=== PATIENT | female | born 1980 | race African-American/Black ===

== ENCOUNTER 2019-12-29 07:44 | Emergency (ER) | payer SELFPAY ==
[2019-12-29 07:49] VITALS: BP 124/85; PULSE 110; RESP 18; TEMP 37; O2SAT 99; BMI 32.2
[2019-12-29 08:11] LABS: Glucose Urine UA NEG (NEG); Leukocyte Esterase Urine 2+ (NEG); Nitrite Urine NEG (NEG); PH 5.5 (5.0-8.0); Specific Gravity - Urine >= 1.030 (1.005-1.025); UACC Culture Trigger YES; Urine Blood 1+ (NEG); Urine Ketones >=80 MG/DL (NEG); Urine Protein NEG (NEG-TRACE)
--- NOTE | 2019-12-29 08:11 | ED_ITS ---
HPI - Female Genitourinary General Chief complaint: Urogenital-Female Stated complaint: back pain, difficulty urinating Time Seen by Provider: 12/29/19 08:07 Source: patient Mode of arrival: ambulatory Limitations: no limitations History of Present Illness HPI Narrative: patient comes to emergency room complaining of difficulty urinating and frequency. Patient states she does not have any burning. Patient states the last time she had normal urinary stream was approximately 2-3 days ago. Patient denies any fever, patient completed of right-sided back pain, which starts resolved. Patient denies any trauma. Related Data Previous Rx's Medication Instructions Recorded levofloxacin 500 mg PO DAILY #6 tab 12/29/19 phenazopyridine 200 mg PO TID PRN #6 tab 12/29/19 Allergies Allergy/AdvReac Type Severity Reaction Status Date / Time No Known Allergies Allergy Unverified 11/17/19 17:09 Review of Systems Review of Systems: Constitutional : No Weight loss, No Fever, No Chills, No Night Sweats, No Fatigue, No Malaise ENT/Mouth : No Hearing loss, No Ear Pain, No Nasal Congestion, No Sinus Pain, No Hoarseness, No sore throat, No Rhinorrhea, No Swallowing Difficulty Eyes: No Eye Pain, No Swelling, No Redness, No Foreign Body, No Discharge, No Vision Changes Cardiovascular : No Chest Pain, No SOB, No Dyspnea on Exertion, No Orthopnea, No Edema, No Palpitations Respiratory : No Cough, No Sputum, No Wheezing, No Smoke Exposure, No Dyspnea Gastrointestinal : No Nausea, No Vomiting, No Diarrhea, No Constipation, No abdominal Pain, No Hematochezia, No Melena Genitourinary : no irregular bleeding, No Dysuria, Denies hematuria, complaining of urinary frequency, no incontinence. decreased amount of urine Musculoskeletal : No joint pain, No Myalgias, No Joint Swelling Skin : No Skin Lesions, No rash Neuro : No Weakness, No Numbness, No Paresthesias, No Loss of Consciousness, No Dizziness, No Headache Psych : No Anxiety/Panic, No Depression, No SI/HI/AH/VH, No Social Issues, Heme/Lymph: No Bruising, No Bleeding,No Lymphadenopathy Endocrine : No Polyuria, No Polydipsia, No Temperature Intolerance PMFSH Past Medical History Medical History Anemia Social History Social History Alcohol intake: current Alcohol intake frequency: holidays/special occasions only Smoking Status: Never smoker Use of substances other than those prescribed or required for medical reasons: No Advance Directives: No Advance Directives Information Provided: No Physical Exam Vital Signs: Vital Signs: Vital Signs Temp Pulse Resp BP Pulse Ox 12/29/19 07:49 98.6 F 110 H 18 124/85 99 Body Mass Index 32.2 Appearance: Alert. Oriented X3. No acute distress. Eyes: Pupils equal, round and reactive to light. ENT: Pharynx normal. Neck: Normal inspection. Neck supple. No lymph nodes noted. No crepitus CVS: Normal heart rate and rhythm. Pulses normal. Normal S1 and S2 Respiratory: No respiratory distress. Breath sounds normal. No Wheezing. No rales Abdomen: Soft and nontender. No rigidity. No distention. good BS x4 Back: no CVA tenderness, no back pain Skin: Skin warm and dry. Normal skin color. Normal skin turgor. Extremities: No lower extremity edema. No lower extremity edema. No Lacerations. No Rash Neuro: Oriented X 3. No motor deficit. No sensory deficit. Moving all extermities. No slurred speech. Course Course Course Narrative: I discussed with the patient that she has a UTI, given that she has a UTI back pain, clinically she has pyelonephritis. at this time sepsis is not suspected. Patient will be sent home with a prescription for UTI treatment. Patient requesting not to get Bactrim, states she had an adverse effect 10 years ago I discussed with the patient if she develops any urinary retention, worsening abdominal pain, fever, flank pain, new symptoms, to return to emergency room MDM - Female Genitourinary Lab Data Result diagrams: 12/29/19 08:40 12/29/19 08:40 Labs: Lab Results 12/29/19 12/29/19 12/29/19 Range/Units 08:03 08:40 08:40 WBC 7.5 (4.8-10.8) X10*3/uL RBC 4.07 L (4.20-5.50) X10*6/uL Hgb 10.0 L (12.0-16.0) g/dl Hct 32.2 L (37-47) % MCV 79.1 L (80-98) fL MCH 24.6 L (27.0-33.0) pg MCHC 31.1 (31.0-35.0) g/dl RDW 18.6 H (11.0-16.0) % Plt Count 306 (160-400) X10*3/uL MPV 11.0 (9.4-12.3) fL Immature Gran % (Auto) 0.4 (0.0-0.4) % Neut % (Auto) 67.4 (45-73) % Lymph % (Auto) 21.7 (20-40) % [place] % (Auto) 8.8 (2-11) % Eos % (Auto) 0.8 (0-4) % Baso % (Auto) 0.9 (0-2) % Lymph # (Auto) 1.6 (1.2-4.9) X10*3/uL [place] # (Auto) 0.7 (0.1-1.2) X10*3/uL Eos # (Auto) 0.1 (0.0-0.4) X10*3/uL Baso # (Auto) 0.1 (0.0-0.2) X10*3/uL Abs Immat Gran (auto) 0.03 (0.00-0.03) X10*3/uL Absolute Neuts (auto) 5.0 (2.0-8.3) X10*3/uL Absolute Nucleated RBC 0.000 (0.0-0.012) X10*3/uL Nucleated RBC % (auto) 0.0 (0.0-0.2) /100WBC Sodium 137 (135-145) mmol/L Potassium 4.3 (3.3-5.1) mmol/l Chloride 106 (96-108) mmol/L Carbon Dioxide 21 L (22-29) mmol/L Anion Gap 14 (12-20) BUN 8 L (9-16) mg/dL Creatinine 0.75 (0.5-1.4) mg/dL Estim Creat Clear Calc 118.2 Estimated GFR > 60 Random Glucose 80 (60-115) mg/dL Calcium 8.6 (8.4-10.2) mg/dL Urine Color YELLOW Urine Appearance CLOUDY Urine pH 5.5 (5.0-8.0) Ur Specific [place] >= 1.030 H (1.005-1.025) Urine Protein NEG (NEG-TRACE) MG/DL Urine Glucose (UA) NEG (NEG) MG/DL Urine Ketones >=80 (NEG) MG/DL Urine Blood 1+ H (NEG) Urine Nitrite NEG (NEG) Ur Leukocyte Esterase 2+ H (NEG) Urine RBC 1-4 (0) /HPF Urine WBC 5-9 H (0-4) /HPF Ur Squamous Epith Cells 3+ /LPF Urine Bacteria 1+ /LPF Urine Test NEGATIVE (NEGATIVE) Discharge Plan Discharge Clinical Impression: Urinary tract infection Qualifiers: Urinary tract infection type: acute pyelonephritis Qualified Code(s): N10 - Acute pyelonephritis Patient Disposition: Home, Self-Care Instructions: Urinary Tract Infection in Women (ED) Additional Instructions: if you have urinary retention, worsening abdominal pain, fever, flank pain, new symptoms, please return to the emergency room or call 911 Prescriptions: New levofloxacin 500 mg tablet 500 mg PO DAILY Qty: 6 RF: 0 phenazopyridine 100 mg tablet 200 mg PO TID PRN (Reason: pain) Qty: 6 RF: 0
[2019-12-29 08:13] LABS: Appearance Urine CLOUDY; Color Urine YELLOW
[2019-12-29 08:28] LABS: Bacteria Urine 1+ /LPF; Squamous Epithelial Cell Urine 3+ /LPF; UACC CULT YES
[2019-12-29 08:44] LABS: MANUAL DIFF FLAG NO
[2019-12-29 08:46] LABS: Basophils Absolute Auto 0.1 X10*3/uL (0.0-0.2); Basophils Percent Auto 0.9 % (0-2); Eosinophils Absolute Auto 0.1 X10*3/uL (0.0-0.4); Eosinophils Percent Auto 0.8 % (0-4); Hematocrit 32.2 % (37-47); Imm Gran Abs Auto 0.03 X10*3/uL (0.00-0.03); Imm Gran Pct Auto 0.4 % (0.0-0.4); Lymphocytes Absolute Auto 1.6 X10*3/uL (1.2-4.9); Lymphocytes Percent Auto 21.7 % (20-40); Mean Corpuscular HGB Conc 31.1 g/dl (31.0-35.0); Mean Corpuscular Hemoglobin 24.6 pg (27.0-33.0); Mean Corpuscular Volume 79.1 fL (80-98); Monocytes Absolute Auto 0.7 X10*3/uL (0.1-1.2); Monocytes Percent Auto 8.8 % (2-11); Neutrophils Percent Auto 67.4 % (45-73); Platelet Count 306 X10*3/uL (160-400); Red Blood Count 4.07 X10*6/uL (4.20-5.50); Red Cell Distribution Width 18.6 % (11.0-16.0); White Blood Count 7.5 X10*3/uL (4.8-10.8)
[2019-12-29 08:49] LABS: UPreg QC Valid YES; Urine Pregnancy NEGATIVE (NEGATIVE)
[2019-12-29 09:07] LABS: Anion Gap 14 (12-20); Blood Urea Nitrogen 8 mg/dL (9-16); Calcium 8.6 mg/dL (8.4-10.2); Carbon Dioxide 21 mmol/L (22-29); Chloride 106 mmol/L (96-108); Creatinine Clr Calc Pharmacy 118.2; Estimated Glomerular Filt Rate > 60; Glucose Random 80 mg/dL (60-115); Potassium 4.3 mmol/l (3.3-5.1); Sodium 137 mmol/L (135-145)
[2019-12-29] MEDS: levoFLOXacin 500 MG TABLET PO (09:58)
== END 2019-12-29 10:21 | disposition home or self-care (01) ==
PROVIDERS: Emergency Provider Emergency Medicine; PCP Internal Medicine
DX: N10 Acute pyelonephritis (principal); M54.5 Low back pain; R33.9 Retention of urine, unspecified; Z79.899 Other long term (current) drug therapy
CPT/HCPCS: 36415; 51798; 80048; 81001; 81025; 85025; 87086; 99283; 99284

== ENCOUNTER → 2021-01-08 09:52 | Outpatient (BNVA) | payer SELFPAY | PROVIDERS: PCP Internal Medicine | DX: R76.11 Nonspecific reaction to tuberculin skin test without active tuberculosis (principal) ==

== ENCOUNTER 2021-06-08 08:54 | Emergency (ER) | payer SELFPAY ==
--- NOTE | ~2021-06-08 | US_ITS ---
EXAMINATION:US pelvic and transvaginal CLINICAL INFORMATION: Reason for Exam prolonged bleeding, 19 days COMPARISON: No priors available. LMP: 05/30/2021 FINDINGS: UTERUS: The uterus is anteverted. Size: 11.2 x 9.1 x 10.4 cm. Uterine mass: Heterogeneous uterus, large uterine mass likely fibroid 7.7 x 7.3 x 7.9 cm. Smaller intramural echogenic structure in the fundus probably a small fibroid 1.2 x 1.2 x 1.1 cm. Cervix: Grossly unremarkable. Endometrium: No ultrasound evidence of endometrial lesion. endometrial thickness measures 0.9 cm fluid within the endometrial canal probably menstrual products. ADNEXA: Normal Right ovary: Normal in size. Left ovary: Normal in size. Doppler exam: Normal Doppler flow identified in both ovaries. FREE FLUID: Trace amount of free fluid. OTHER FINDINGS: None US/US pelvic and transvaginal IMPRESSION: *Uterine masses likely fibroids the largest measure up to 7.9 cm. *fluid within the endometrial canal probably menstrual products. *Ovaries unremarkable.
[2021-06-08 09:02] VITALS: BP 146/98; PULSE 99; RESP 15; TEMP 36.2; O2SAT 100; BMI 32.8
--- NOTE | 2021-06-08 10:12 | ED_ITS ---
HPI - Female Genitourinary General Chief complaint: Vaginal Bleeding Stated complaint: Vaginal bleeding Time Seen by Provider: 06/08/21 09:43 Source: patient Mode of arrival: ambulatory Limitations: no limitations History of Present Illness HPI Narrative: Patient is a 41-year-old female with past history of iron deficiency anemia. She presents emergency department for evaluation of prolonged menstrual bleeding times 19 days. She reports that her typical menstrual cycle comes monthly, lasting about 8 days. Initially she was soaking through pads, currently over the past 3-4 days has been using regular/light tampons in changing twice a day. The bleeding has decreased overall. She reports a normal menstrual cycle in April 2021. She has some suprapubic cramping associated with this. Pap smear was 2 years ago which was normal, denies any past history of abnormal Pap smears. Denies any family history of cervical cancer, uterine cancer, breast cancer. She does have a family history of fibroids. She has had 2 miscarriages in the past. Denies dizziness/lightheadedness, headache, vision changes, chest pain, palpitations, shortness of breath, difficulty breathing, abdominal pain, nausea, vomiting dysuria, urinary frequency/urgency/hesitancy, abnormal vaginal discharge, concern for sexually transmitted infection. She has not been sexually active for a few months. She is not using any form of contraception. Related Data Previous Rx's Medication Instructions Recorded levofloxacin 500 mg tablet 500 mg PO DAILY #6 tab 12/29/19 phenazopyridine 100 mg tablet 200 mg PO TID PRN #6 tab 12/29/19 Allergies Allergy/AdvReac Type Severity Reaction Status Date / Time acetaminophen [From Percocet] Allergy Itching Verified 12/29/19 09:55 oxycodone [From Percocet] Allergy Itching Verified 12/29/19 09:55 Review of Systems Review of Systems: Constitutional : No Fever, No Chills ENT/Mouth : No sore throat, No Rhinorrhea Eyes: No Eye Pain, No Redness Cardiovascular : No Chest Pain, No SOB Respiratory : No Cough, No Sputum, No Wheezing Gastrointestinal : no Nausea, No Vomiting, No Diarrhea, no abdominal pain, Genitourinary : positive irregular bleeding, No Dysuria, No Urinary Frequency, positive suprapubic cramping Musculoskeletal : No Myalgias Skin : No rash Neuro : No Weakness, No Headache, no dizziness Psych : No Anxiety/Panic, No Depression Heme/Lymph: No bruising, No Lymphadenopathy Endocrine : No Polyuria, No Polydipsia Yes all other systems are reviewed and are negative [facility], [facility] Past Medical History Attestation statement: The following information was validated with the patient. Source: old records reviewed Medical History Anemia Social History Social History Alcohol intake: current Alcohol intake frequency: does not drink Patient Tobacco Use Status: Never used Tobacco Use of substances other than those prescribed or required for medical reasons: No Advance Directives: No Advance Directives Information Provided: No Patient : No Physical Exam Vital Signs: Vital Signs: Last Vital Signs Temp 97.2 F 06/08/21 09:02 Pulse 91 06/08/21 12:38 Resp 16 06/08/21 12:38 BP 140/67 H 06/08/21 12:38 Pulse Ox 98 06/08/21 11:41 BMI result Body Mass Index 32.8 Vital signs have been reviewed and appeared to be correct. Blood pressure elevated 146/98. Heart rate normal.? Respiration rate normal. Temperature n ormal.? Oxygen saturation normal. Appearance: Alert.?Oriented to person, place and time. No acute distress.?Normal affect. Eyes: Pupils equal, round and reactive to light.? ENT: Pharynx normal.?? Neck: Normal inspection.? Neck supple.?? CVS: Heart sounds normal. Normal heart rate and rhythm.? Pulses normal.?? Respiratory: No respiratory distress.? Lung sounds clear to auscultation bilaterally?? Abdomen: Soft and non-tender. Normoactive bowel sounds. ? Genitourinary: External vagina normal appearing, no lesions. Vagina with no atrophy, discharge, lesions, cystocele or rectocele, no abnormal discharge. Normal appearing cervix with scan bleeding. Uterus without tenderness. Adnexa without tenderness, organomegaly or nodularity. Anus and perineum are unremarkable. Skin: Skin warm and dry.? Normal skin color.?? Extremities: No lower extremity edema.? Neuro: Moves all extremities spontaneously. Sensation intact bilaterally. No focal neuro deficits. Ambulates with normal steady gait. Course Course Course Narrative: Patient is a 41-year-old female presenting for evaluation of prolonged menstrual bleeding. Based on history menstrual bleeding has overall decreased. Benign pelvic exam, scant cervical bleeding noted. It is reassuring that she not lightheaded, having dyspnea, palpitations, weakness, or chest pain. Will obtain labs including CBC, BMP, hCG, urinalysis, pelvic ultrasound, bacterial vaginosis panel, declined chlamydia/gonorrhea/trichomoniasis testing. History and physical exam a consistent with pelvic inflammatory disease, ruptured ovarian cyst, ovarian torsion, vaginal trauma or retained foreign body. Disposition pending results Reevaluation(s) Reevaluation #1: CBC reveals mild anemia hemoglobin 11.6 hematocrit 37.7, BMP unremarkable. HCG negative. TSH is normal. Urinalysis negative for nitrates, 1+ leuk esterase, 5- 9 WBC, 3+ squamous epithelial cells, given she is asymptomatic likely contamination, +3 blood however she is currently having vaginal bleeding. Pelvic ultrasound reveals uterine masses likely to be fibroids the largest measuring 7.9 cm. Discussed findings with patient, and plan of care for discharge home, she is well appearing, nontoxic, will require outpatient follow- up with [facility] in 1-2 weeks, discussed reasons to return back to the emergency department, all questions were answered MDM - Female Genitourinary Medical Records Attestation: I reviewed the patient's medical records. Lab Data Attestation: I reviewed the patient's lab results. Result diagrams: 06/08/21 10:25 06/08/21 10:25 Labs: Lab Results 06/08/21 06/08/21 06/08/21 Range/Units 10:25 10:25 10:26 WBC 6.9 (4.8-10.8) X10*3/uL RBC 4.44 (4.20-5.50) X10*6/uL Hgb 11.6 L (12.0-16.0) g/dl Hct 37.7 (37.0-47.0) % MCV 84.9 (80.0-98.0) fL MCH 26.1 L (27.0-33.0) pg MCHC 30.8 L (31.0-35.0) g/dl RDW 19.0 H (11.0-16.0) % Plt Count 347 (160-400) X10*3/uL MPV 11.3 (9.4-12.3) fL Immature Gran % (Auto) 0.3 (0.0-0.4) % Neut % (Auto) 70.9 (45-73) % Lymph % (Auto) 19.9 L (20-40) % [place] % (Auto) 6.6 (2-11) % Eos % (Auto) 1.6 (0-4) % Baso % (Auto) 0.7 (0-2) % Lymph # (Auto) 1.4 (1.2-4.9) X10*3/uL [place] # (Auto) 0.5 (0.1-1.2) X10*3/uL Eos # (Auto) 0.1 (0.0-0.4) X10*3/uL Baso # (Auto) 0.1 (0.0-0.2) X10*3/uL Abs Immat Gran (auto) 0.02 (0.00-0.03) X10*3/uL Absolute Neuts (auto) 4.9 (2.0-8.3) x10*3/uL Absolute Nucleated RBC 0.000 (0.0-0.012) X10*3/uL Nucleated RBC % (auto) 0.0 (0.0-0.2) /100WBC Sodium 139 (135-145) mmol/L Potassium 4.0 (3.3-5.1) mmol/L Chloride 107 (96-108) mmol/L Carbon Dioxide 22 (22-29) mmol/L Anion Gap 14 (12-20) BUN 11 (9-16) mg/dL Creatinine 0.76 (0.5-1.4) mg/dL Estim Creat Clear Calc 115.4 Estimated GFR > 60 Random Glucose 97 (60-115) mg/dL Calcium 9.1 (8.4-10.2) mg/dL TSH 1.41 (0.32-4.0) uIU/mL Beta HCG, Quant < 2 mIU/mL Urine Color YELLOW Urine Appearance CLOUDY Urine pH 5.5 (5.0-8.0) Ur Specific [place] >= 1.030 H (1.005-1.025) Urine Protein 1+ H (NEG-TRACE) MG/DL Urine Glucose (UA) NEG (NEG) MG/DL Urine Ketones NEG (NEG) MG/DL Urine Blood 3+ H (NEG) Urine Nitrite NEG (NEG) Ur Leukocyte Esterase 1+ H (NEG) Urine RBC 1-4 (0) /HPF Urine WBC 5-9 H (0-4) /HPF Ur Squamous Epith Cells 3+ /LPF Urine Bacteria 1+ /LPF Imaging Data pelvic US: Radiologist's impression: US/US pelvic and transvaginal IMPRESSION: *Uterine masses likely fibroids the largest measure up to 7.9 cm. ? *fluid within the endometrial canal probably menstrual products. ? *Ovaries unremarkable. Discharge Plan Discharge Clinical Impression: Elevated blood pressure reading, Dysfunctional uterine bleeding Patient Disposition: Home, Self-Care Instructions: Dysfunctional Uterine Bleeding (ED) Additional Instructions: Please contact OBGYN to schedule follow-up visit within 1-2 weeks. You may return to the emergency department with any new or worsening symptoms or concerns. As we discussed your blood pressure was elevated today. Is important to establish care with a primary care provider to have your blood pressure re- evaluated within 1-2 weeks. Prescriptions: No Action levofloxacin 500 mg tablet 500 mg PO DAILY Qty: 6 0RF phenazopyridine 100 mg tablet 200 mg PO TID PRN (Reason: pain) Qty: 6 0RF Referrals: Nomi Benitez MD [Physician] - 2 weeks Interventions: ED Discharge Assessment Last Done: 06/08/21 12:38 Discharge Date/Time: 06/08/21 12:39
[2021-06-08 10:35] LABS: MANUAL DIFF FLAG NO
[2021-06-08 10:37] LABS: Basophils Absolute Auto 0.1 X10*3/uL (0.0-0.2); Basophils Percent Auto 0.7 % (0-2); Eosinophils Absolute Auto 0.1 X10*3/uL (0.0-0.4); Eosinophils Percent Auto 1.6 % (0-4); Hematocrit 37.7 % (37.0-47.0); Hemoglobin 11.6 g/dl (12.0-16.0); Imm Gran Abs Auto 0.02 X10*3/uL (0.00-0.03); Imm Gran Pct Auto 0.3 % (0.0-0.4); Lymphocytes Absolute Auto 1.4 X10*3/uL (1.2-4.9); Lymphocytes Percent Auto 19.9 % (20-40); Mean Corpuscular HGB Conc 30.8 g/dl (31.0-35.0); Mean Corpuscular Hemoglobin 26.1 pg (27.0-33.0); Mean Corpuscular Volume 84.9 fL (80.0-98.0); Mean Platelet Volume 11.3 fL (9.4-12.3); Monocytes Absolute Auto 0.5 X10*3/uL (0.1-1.2); Monocytes Percent Auto 6.6 % (2-11); Neutrophils Absolute Auto 4.9 x10*3/uL (2.0-8.3); Neutrophils Percent Auto 70.9 % (45-73); Platelet Count 347 X10*3/uL (160-400); Red Blood Count 4.44 X10*6/uL (4.20-5.50); White Blood Count 6.9 X10*3/uL (4.8-10.8)
[2021-06-08 10:37] LABS: Appearance Urine CLOUDY; Color Urine YELLOW; Glucose Urine UA NEG (NEG); Leukocyte Esterase Urine 1+ (NEG); Nitrite Urine NEG (NEG); PH 5.5 (5.0-8.0); Specific Gravity - Urine >= 1.030 (1.005-1.025); UACC Culture Trigger YES; Urine Blood 3+ (NEG); Urine Ketones NEG (NEG); Urine Protein 1+ MG/DL (NEG-TRACE)
[2021-06-08 10:52] LABS: Anion Gap 14 (12-20); Blood Urea Nitrogen 11 mg/dL (9-16); Calcium 9.1 mg/dL (8.4-10.2); Carbon Dioxide 22 mmol/L (22-29); Chloride 107 mmol/L (96-108); Creatinine Clr Calc Pharmacy 115.4; Estimated Glomerular Filt Rate > 60; Glucose Random 97 mg/dL (60-115); Sodium 139 mmol/L (135-145)
[2021-06-08 10:54] LABS: Bacteria Urine 1+ /LPF; Squamous Epithelial Cell Urine 3+ /LPF
[2021-06-08 10:59] LABS: HCG Quantitative < 2 mIU/mL
[2021-06-08 11:41] VITALS: BP 143/77; PULSE 98; RESP 18; O2SAT 98
[2021-06-08 12:21] LABS: Thyroid Stimulating Hormone 1.41 uIU/mL (0.32-4.0)
[2021-06-08 12:38] VITALS: BP 140/67; PULSE 91; RESP 16
[2021-06-09 09:42] LABS: BV Int Neg Control Negative (Negative); BV Int Pos Control Positive (Positive)
== END 2021-06-08 12:39 | disposition home or self-care (01) ==
PROVIDERS: Nurse Practitioner Family; Emergency Provider Emergency Medicine; PCP Internal Medicine
DX: R03.0 Elevated blood-pressure reading, without diagnosis of hypertension (principal); N93.8 Other specified abnormal uterine and vaginal bleeding; N39.0 Urinary tract infection, site not specified; B95.61 Methicillin susceptible Staphylococcus aureus infection as the cause of diseases classified elsewhere; N76.0 Acute vaginitis
CPT/HCPCS: 36415; 76830; 76856; 80048; 81001; 84443; 84702; 85025; 87086; 87088; 87186; 87480; 87510; 87660; 99284

== ENCOUNTER → 2021-07-09 11:31 | Outpatient (BNVA) | payer OTHER, SELFPAY | PROVIDERS: PCP Internal Medicine; Visit Provider Obstetrics & Gynecology | DX: N93.9 Abnormal uterine and vaginal bleeding, unspecified (principal) ==

== ENCOUNTER 2023-04-25 09:28 | Outpatient (REF) | payer BC, SELFPAY ==
--- NOTE | ~2023-04-25 | MM_ITS ---
EXAMINATION: MM SCREENING DIGITAL BREAST TOMOSYNTHESIS, BILATERAL CLINICAL INFORMATION: Screening. Asymptomatic. COMPARISON: Mammography: This is a baseline mammogram. TECHNIQUE: Digital breast tomosynthesis is performed in both the craniocaudal and mediolateral oblique views along with computer-aided detection (CAD). Synthesized 2D images are generated from the tomosynthesis. FINDINGS: There are scattered areas of fibroglandular density (ACR BI-RADS breast composition Category b). In the 12:00 position of the left breast, at a middle depth, there is an asymmetry which warrants additional mammographic and targeted sonographic imaging. In the right breast, there are no significant masses, abnormal calcifications, or other abnormalities. MM/MM tomosynthesis screening BI IMPRESSION: Asymmetry of the 12:00 position of the right breast warrants additional mammographic and targeted sonographic imaging. No mammographic signs of malignancy left breast. ASSESSMENT: BI-RADS BI-RADS 0 - Incomplete: Needs additional Imaging. RECOMMENDATION: 1. Additional views of the left breast. 2. Targeted ultrasound if warranted after review of the additional views. 3. Radiology department staff will contact the patient for additional imaging. Additional Imaging required This examination should not preclude the clinical evaluation of a suspicious palpable abnormality. This patient's information was entered into a reminder system with a target due date for their next mammogram.
== END 2023-04-25 09:29 | disposition home or self-care (01) ==
LOC: HO.MAMMO 09:28
PROVIDERS: Visit Provider Obstetrics & Gynecology
DX: Z12.31 Encounter for screening mammogram for malignant neoplasm of breast (principal)
CPT/HCPCS: 77063; 77067

== ENCOUNTER → 2023-04-25 10:00 | Outpatient (BNV) | payer BC, SELFPAY | PROVIDERS: Visit Provider Radiology Diagnostic Radiology | DX: Z12.31 Encounter for screening mammogram for malignant neoplasm of breast (principal) | CPT/HCPCS: 77063; 77067 ==

== ENCOUNTER 2023-05-08 09:55 | Outpatient (REF) | payer BC, SELFPAY ==
--- NOTE | ~2023-05-08 | MM_ITS ---
EXAMINATION: MM DIAGNOSTIC DIGITAL BREAST TOMOSYNTHESIS, RIGHT CLINICAL INFORMATION: Evaluate one view asymmetry seen superior right MLO view only on baseline screening exam. COMPARISON: Mammography: 04/25/2023 baseline screening exam. TECHNIQUE: Digital breast tomosynthesis is performed. 2D images are generated from the tomosynthesis. The following views are obtained: Full-field 3-D digital right mediolateral view, and a 3-D spot compression right MLO view. Computer-aided diagnosis was used for this study. FINDINGS: There are scattered areas of fibroglandular density (ACR BI-RADS breast composition Category b). Additional views show no significant mass, architectural abnormality, or abnormal calcifications right breast. No persisting abnormality in the superior right breast is evident. Review of the baseline mammogram shows no correlate on the right CC projection. Findings are consistent with superimposition artifact of normal tissue. No additional abnormalities noted in the right breast. No skin or axillary abnormality. There is a benign intramammary lymph node in the axillary tail region. MM/MM tomosynthesis added views R IMPRESSION: No persisting findings suspicious for malignancy right breast. Recommend the patient resume routine annual screening mammography. ASSESSMENT: BI-RADS BI-RADS 1 - Negative RECOMMENDATION: 1 year F/U Results were provided to the patient at time of visit by the technologist. This patient's information was entered into a reminder system with a target due date for their next mammogram.
== END 2023-05-08 09:56 | disposition home or self-care (01) ==
LOC: HO.MAMMO 09:55
PROVIDERS: Visit Provider Obstetrics & Gynecology
DX: N64.89 Other specified disorders of breast (principal)
CPT/HCPCS: 77061; 77065

== ENCOUNTER → 2023-05-08 10:30 | Outpatient (BNV) | payer BC, SELFPAY | PROVIDERS: Visit Provider Radiology Diagnostic Radiology | DX: R92.321 Mammographic fibroglandular density, right breast (principal) | CPT/HCPCS: 77061; 77065 ==

== ENCOUNTER 2023-11-11 11:26 | Outpatient (REF) | payer BC, SELFPAY ==
[2023-11-12 07:29] LABS: CT PCR NOT DETECTED (Not Detect.); NG PCR NOT DETECTED (Not Detect.)
[2023-11-13 13:18] LABS: HPV mRNA E6/E7 Not Detected (Not Detected)
== END 2023-11-11 11:27 | disposition home or self-care (01) ==
LOC: HO.LNP 11:26
PROVIDERS: Visit Provider Obstetrics & Gynecology
DX: N93.9 Abnormal uterine and vaginal bleeding, unspecified (principal)
CPT/HCPCS: 87491; 87591; 87624; 88175

== ENCOUNTER 2023-11-11 11:26 | Outpatient (AMB) | payer BC, SELFPAY ==
--- NOTE | 2023-11-11 11:28 | A.OFFVIS_ITS ---
Vital Signs 11/11/23 11:29 Height 5 ft 7 in Weight 237 lb BMI 37.1 BP 120/72 Intake Visit Reasons: Fibroids follow up Control Systems Eng Required: No Information Interpreted: non-clinical & clinical Accompanied by: Self / Same As Patient Allergies acetaminophen [From Percocet] Allergy (Verified 11/11/23 11:32) Itching oxycodone [From Percocet] Allergy (Verified 11/11/23 11:32) Itching HPI Comments Details: Presenting complaining of heavy menstrual cycle associated passage of blood clots and pelvic cramping over the last 3 months. Last mammogram was in 05/23 was BI-RADS 1 Last co testing? Last pelvic ultrasound in 06/21 showed 2 myomas 17.9 cm the other one measuring 1.2 cm PFSH Medical History Anemia Social History Alcohol intake: current Alcohol intake frequency: does not drink Patient Tobacco Use Status: Never used Tobacco Female Reproductive History Menstrual Age of Menarche: 12 Review of Systems Const All systems reviewed & are unremarkable except as noted in HPI and below Card Reports as per HPI Resp Reports as per HPI GI Reports as per HPI and Reports no additional complaints Reports as per HPI Physical Exam Vital Signs: Last Vital Signs BP 120/72 11/11/23 11:29 BMI result Body Mass Index 37.1 Const General: cooperative, healthy appearing and comfortable Chest Chest palpation & inspection: normal inspection of the chest and normal palpation of entire chest wall Breast/axilla inspection: normal inspection of the breasts and normal inspection of the axillae Breast/axilla palpation: normal palpation of the breasts, normal palpation of the axillae and no axillary lymphadenopathy Resp Effort & Inspection: normal respiratory effort Auscultation: clear to auscultation bilaterally Percussion: percussion normal Cardio Palpation: normal PMI Rate: regular rate Rhythm: regular rhythm Heart sounds: no murmurs and no rubs Peripheral pulses: Peripheral pulses 2+ throughout GI Inspection: Yes normal to inspection Palpation (GI): Soft to palpation, nontender, no guarding, not rigid and No hepatosplenomegaly present Percussion: Yes normal to percussion Auscultation: normal bowel sounds Rectal Exam - Female: deferred General: Yes bladder normal to palpation External Female Exam: No lesion Speculum Exam - Vagina: normal appearance of the vagina, normal palpation, normal vaginal discharge and not erythematous Speculum Exam - Cervix: normal appearance of the cervix and normal palpation Bimanual exam- vagina & uterus: normal bimanual exam, normal palpation, bladder normal to palpation, consistency normal, normal palpation and enlarged Bimanual Exam- Adnexa, other: normal adnexae, no masses and no tenderness Assessment & Plan Assessment & Plan (1) Abnormal uterine bleeding: Code(s): N93.9 - Abnormal uterine and vaginal bleeding, unspecified Category: Medical Plan: Co testing done, GC and chlamydia taken CBC, TSH, prolactin, HCG, and pelvic ultrasound ordered. Discussed with the patient the different causes of abnormal bleeding including thyroid disorders, uterine and ovarian pathology, endometrial hyperplasia, carcinoma and other potential causes. Discussed with the patient the work up including CBC (to r/o anemia), TSH, prolactin, pelvic Ultrasound, endometrial biopsy to r/o endometrial pathology. All questions answered and the patient verbalized understanding. Instructed the patient to schedule an appointment for an endometrial biopsy in 2 weeks. (2) Uterine myoma: Code(s): D25.9 - Leiomyoma of uterus, unspecified Category: Medical Plan: Discussed with the patient the results of the ultrasound done in 2021 and the size of the myomas. Discussed with the patient risk of myosarcoma and symptoms that are caused by myomas including but not limited to pelvic pain, pressure symptoms, abnormal uterine bleeding. Will order repeat pelvic ultrasound to follow-up on the previous myoma sizes. In addition discussed with the patient options of treatment for myomas including: Serial ultrasounds periodically to follow-up on the size of the myoma while targeting the treatment against fibroids related symptoms ( control pills, Mirena IUD, progesterone treatment, GnRH agonist/antagonist, uterine artery embolization or endometrial ablation) versus surgical treatment including hysterectomy and or myomectomy. All pros and cons, risks and benefits of all options were discussed with the patient. The patient understands that delay in surgical treatment in case of myosarcoma can affect her prognosis, after further discussion, the patient decided to think about it and get back to us next visit Orders: Orders CT NG by PCR Today N93.9 - Abnormal uterine and vaginal bleeding, unspecified TSH reflex Free T4 Today N93.9 - Abnormal uterine and vaginal bleeding, unspecified Complete Blood Count no Diff Today N93.9 - Abnormal uterine and vaginal blee ding, unspecified US pelvic and transvaginal Today N93.9 - Abnormal uterine and vaginal bleeding, unspecified PAP + HPV E6/E7 rfx 18/45 Today N93.9 - Abnormal uterine and vaginal bleeding, unspecified Prolactin Today N93.9 - Abnormal uterine and vaginal bleeding, unspecified HCG Quantitative Today N93.9 - Abnormal uterine and vaginal bleeding, unspecified Coding Level of Care Code Est Pt Level 3 (71869) Diagnoses Abnormal uterine bleeding N93.9 Uterine myoma D25.9
[2023-11-11 11:29] VITALS: BP 120/72; BMI 37.1
== END 2023-11-11 12:03 | disposition home or self-care (01) ==
PROVIDERS: Visit Provider Obstetrics & Gynecology
DX: N93.9 Abnormal uterine and vaginal bleeding, unspecified (principal); D25.9 Leiomyoma of uterus, unspecified
CPT/HCPCS: 99213

== ENCOUNTER 2023-11-13 13:26 | Outpatient (REF) | payer BC, SELFPAY ==
--- NOTE | ~2023-11-13 | US_ITS ---
EXAMINATION: US PELVIS CLINICAL INFORMATION: Abnormal uterine and vaginal bleeding. COMPARISON: Ultrasound pelvis 06/08/2021. TECHNIQUE: Ultrasound of the pelvis is performed using both transabdominal and transvaginal transducers along with Doppler. Transvaginal imaging is performed due to inadequate visualization transabdominally. FINDINGS: UTERUS: Again seen is an enlarged fibroid uterus measuring 14.2 x 9.6 x 10.4 cm for a volume of 742 mL (previously 554 mL). The double wall endometrial thickness could not be seen secondary to distortion from the large fibroid. A single large fibroid is present at the fundus measuring 8.0 x 7.7 x 8.8 cm (previously 7.7 x 7.3 x 7.9 cm). ADNEXA: Only the right ovary could not be seen on today's study. There is no pelvic ascites or fluid collection. Right ovary measures 3.1 x 1.6 x 2.3 cm for a volume of 6.5 mL. US/US pelvic and transvaginal IMPRESSION: Enlarging fibroid uterus (current volume 742 mL, previous 554 mL) with a single enlarging fibroid at the fundus measuring 8.8 cm in greatest dimension. Electronically signed by: Mirza Kitchen MD 11/18/2023 03:50 PM EDT
== END 2023-11-13 13:27 | disposition home or self-care (01) ==
LOC: HO.US 13:26
PROVIDERS: Visit Provider Obstetrics & Gynecology
DX: N93.9 Abnormal uterine and vaginal bleeding, unspecified (principal)
CPT/HCPCS: 76830; 76856

== ENCOUNTER 2024-11-13 06:07 | Emergency (ER) | payer SELFPAY ==
--- OUTSIDE RECORDS SUMMARY | 2023-10-01 09:30 | XMS_ITS ---
Author Organization [facility] Address [address] [address] Care Team Providers Care Structural Biologist Name Role Phone Delgado MIRZA, Ulises Primary Care Provider Unavailab ANÍBAL Nogueira Unavailable [phone] Allergies No Known Allergies REASON FOR VISIT PAIN FROM FIBROIDS Medications Medication SIG (Take, Route, Fr equency, Duration) Notes Start Date End Date Status Terconazole 0.8 % 1 applicatorful at b edtime Vaginal Once a day; Duration: 3 day(s) 01/07/2019 A ctive Social History Tobacco Use: Social History Observation Description Date Details (start date - stop date) Never Smoker NA - NA Tobacco Use/Smoking Question Answer Notes Are you a nonsmoker Alcohol Screen (Audit-C) Question Answer Notes Did you have a drink containing alcohol in the p ast year? No Points 0 Interpretation Negative Vital Signs Height 67 in 10/01/2023 Encounters Encounter Location Date Provider Diagnosis [facility] [address] [address] 10/01/2023 ANÍBAL HUDSON Pelvic Pain R10.2 Assessments Encounter Date Diagnosis (ICD Code) Assessment Notes Treatment Notes Treatment Clinical Notes Section Notes 10/01/2023 Pelvic Pain (ICD-10 - R10.2) Plan Of Treatment Pending Test Test Name Order Date ULTRASOUND: PELVIC W/TRANSVAGINAL 2023 Progress Notes * KARINA APTELDOB:1980 (44 yo F)Acc No.[id number]:10/01/2023 PROGRESS NOTES Patient: KARINA NGUYEN Provider: Kentrell HUDSON MD :1980 A ge:43 Y S ex:Female Date:10/01/2023 Address:[address] [place], [place] [id number] Pcp:Ulises Natarajan MD Subjective: * Chief Complaints: * 1 . PAIN FROM FIBROIDS. * HPI: G YN (Problems): Karina is a 43 yo G0 who presents as a new-again patient, with last care here in 12/2018. 43 year old female presents with c/o Pelvic Pain: H ow did the pain develop: _ _ W hen did the pain start: _ _ L ocation of pain: _ _ D oes pain radiate: _ _ S everity of pain: _ _ Q uality of pain: _ _ A ssociated signs or symptoms: _ _ D enies signs and symptoms: _ _ A ggravating factors: _ _ R emedies tried: _ _ A ny relief from interventions: _ _ S ignificant past medical history: _ _ I maging studies: _ _ * ROS: G eneral/Constitutional: Patient denies f ever, weight gain, weight loss. G astrointestinal: Patient denies b lood in stool, constipation, diarrhea, nausea, vomiting, decreased appetite. W omen Only: Patient denies p ainful menses, painful intercourse, new sexual partners, abnormal vaginal discharge, unprotected sex. G enitourinary: Patient denies b lood in the urine, painful urination, frequent urination, urinary urgency, back pain. M usculoskeletal: Patient denies t rauma to hip(s). P sychiatric: Patient denies f eelings of anxiety, feelings of depression. * Medical History: M edical History Verified. 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 S exual activity n ot currently sexually active. L ast Pap Smear: 2 011, neg. M ammogram: n ot due per age. A bnormal Pap Smear: n o history of abnormal pap smears. L MP and menses 1 . H istory of STD's: n one. B irth Control: n one. M enarche [age]. C olonoscopy y es, 1999. G ardasil: h as not had vaccine. * Hep B Vac 1 999. * OB History: T otal pregnancies 0 . * Hospitalization/Major Diagno stic Procedure: D enies Past Hospitalization. * Family History: M other: alive. F ather: alive. * Social History: T obacco Use: T obacco Use/Smoking A re you a n onsmoker S exual History: D etails of Sexual History A re you sexually active? N o D rugs/Alcohol: D rugs H ave you used drugs other than those for medical reasons in the past 12 months? N o Alcohol Screen (Audit-C) D id you have a drink containing alcohol in the past year? N o P oints 0 I nterpretation N egative M iscellaneous: C hildren: none. Exercise: walking. Marital status: single. 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. Sexually active: no. * Medications: T aking Terconazole 0.8 % Cream 1 applicatorful at bedtime Vaginal Once a day * Allergies: N .K.D.A. Objective: * Vitals: H t: 67 in, Wt: Not Taken - No Medical Need. * Examination: G eneral Exam: CONSTITUTIONAL: G eneral Appearance: c haperone present in room, alert, in no acute distress, normal, well nourished G enitourinary - Female: ABDOMEN: s oft, non-tender, no mass, no rebound, no guarding,no costovertebral angle tenderness. EXTERNAL GENITALS: normal. VAGINA: nontender anterior wall, nontender posterior wall, no abnormal discharges. BLADDER; nontender. ANUS/PERINEUM: visually normal. CERVIX: no cervical movement tenderness. UTERUS: normal size, mobile, non tender. OVARIES: no masses felt in adnexa, nontender. RECTAL EXAM: no masses, normal tone, does not reproduce pain. P sychiatry: AFFECT: appropriate. ATTITUDE: cooperative. SPEECH: clear. Assessment: * Assessment: 1. 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) Pelvic Pain: How did the pain develop:: __ When did the pain start:: __ Location of pain:: __ Does pain radiate:: __ Severity of pain:: __ Quality of pain:: __ Associated signs or symptoms:: __ Denies signs and symptoms:: __ Aggravating factors:: __ Remedies tried:: __ Any relief from interventions:: __ Significant past medical history:: __ Imaging studies:: __ Examination Category Sub-Category Detail Notes Category Not es Genitourinary - Female ABDOMEN: soft, non -tender, no mass, no rebound, no guarding, no costovertebral angle tenderness EXTERNAL GENITALS: normal VAGINA: nontender anterior w all, nontender posterior wall, no abnormal discharges CERVIX: no cervical movement tenderness UTERUS: normal size, mobile, non tender OVARIES: no masses felt in ad nexa, nontender RECTAL EXAM: no masses, normal to ne, does not reproduce pain BLADDER; nontender ANUS/PERINEUM: visually normal Psychiatry ATTITUDE: cooperative AFFECT: appropriate SPEECH: clear General Exam CONSTITUTIONAL: General Appearan ce:: supervisor opening and picking present in room, alert, in no acute distress, normal, well nourished
--- OUTSIDE RECORDS SUMMARY | 2023-10-06 06:00 | XMS_ITS ---
Author Organization [facility] Address [address] [address] Care Team Providers Care Book Trimmer Name Role Phone Delgado MIRZA, Ulises Primary Care Provider Unavailab ANÍBAL Nogueira Unavailable [phone] REASON FOR VISIT PAIN FROM FIBROIDS Encounters Encounter Location Date Provider Diagnosis [facility] [address] [address] 10/06/2023 ANÍBAL HUDSON Plan Of Treatment No Information Progress Notes * KARINA PATELDOB:1980 (44 yo F)Acc No.[id number]:10/06/2023 PROGRESS NOTES Patient: KARINA NGUYEN Provider: Kentrell HUDSON MD :1980 A ge:43 Y S ex:Female Date:10/06/2023 Address:[address] [place], [place] [id number] Pcp:Ulises Natarajan MD Subjective: * Chief Complaints: * 1 . PAIN FROM FIBROIDS. * Medical History: Objective: * Vitals: Assessment: Plan: * Treatment: * Images: Billing Information: * Visit Code: * Procedure Codes: * Electronic signature of ANÍBAL HUDSON MD on 11/13/2024 at 06:44 AM EDT Sign off status: Pending * Provider: Kentrell HUDSON MD Date: 0 10/06/2023 Generated for Printi ng/Faxing/eTransmitting on: 0 11/13/2024 06:44 AM EDT
--- OUTSIDE RECORDS SUMMARY | 2023-12-22 06:00 | XMS_ITS ---
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 * Medical History: Objective: * Vitals: Assessment: Plan: * Treatment: * Images: Billing Information: * Visit Code: * Procedure Codes: * Electronic signature of ANÍBAL HUDSON MD on 11/13/2024 at 06:43 AM EDT Sign off status: Pending * Provider: Kentrell HUDSON MD Date: 1 Generated for Printi ng/Faxing/eTransmitting on: 0 11/13/2024 06:43 AM EDT
--- OUTSIDE RECORDS SUMMARY | 2023-12-31 09:30 | XMS_ITS ---
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 Medications Medication SIG (Take, Route, Fr equency, Duration) Notes Start Date End Date Status Terconazole 0.8 % 1 applicatorful at b edtime Vaginal Once a day; Duration: 3 day(s) 01/07/2019 A ctive Encounters Encounter Location Date Provider Diagnosis [facility] [address] [address] 12/31/2023 ANÍBAL HUDSON Encounter for gynecological examination (general) (routine) without abnormal findings Z01.419 ; Encounter for screening mammogram for malignant neoplasm of breast Z12.31 and Encounter for screening for infections with a predominantly sexual mode of transmission Z11.3 Assessments Encounter Date Diagnosis (ICD Code) Assessment Notes Treatment Notes Treatment Clinical Notes Section Notes 12/31/2023 Encounter for gynecological examination (general) (routine) without abnormal findings (ICD-10 - Z01.419) Discussed cervical cancer screening with either cytology alone every 3 years or high risk HPV co-testing every 5 years as per ASCCP guidelines. Advised continued annual pelvic exams. Patient encouraged to increase her level of exercise. SBE technique encouraged/tau ght. Patient reminded when annual mammogram is due. 12/31/2023 Encounter for screening mammogram for malignant neoplasm of breast (ICD-10 - Z12.31) 12/31/2023 Encounter for screening for infections with a predominantly sexual mode of transmission (ICD-10 - Z11.3) Plan Of Treatment Treatment Notes Assessment Notes Encounter for gynecological examination (general) (routine) without abnormal findings Discussed cervical cancer screening with either cytology alone every 3 years or high risk HPV co-testing every 5 years as per ASCCP guidelines. Advised continued annual pelvic exams. Patient encouraged to increase her level of exercise. SBE technique encouraged/taught. Patient reminded when annual mammogram is due. Pending Test Test Name Order Date MM Digital Screening Mammogram 3D 2023 Next Appt Details Follow Up: 1 Year, Reason: Y early [employer] Principal Solution Specialist Exam Progress Notes * KARINA PATELDOB:1980 (44 yo F)Acc No.[id number]:12/31/2023 PROGRESS NOTES Patient: KARINA NGUYEN Provider: Kentrell HUDSON MD :1980 A ge:43 Y S ex:Female Date:12/31/2023 Address:[address] [place] [address] Pcp:Ulises Natarajan MD Subjective: * Chief Complaints: * 1 . 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 She is new again to this practice, having last received care here in 2019. She has been in state of health since her last exam. She has the following concerns. She has received the Covid-19 vaccine. Relationship status: for years. She is sexually active. Sexual partner(s): male. She does wish to have STI testing. Menses: Contraception: She does report vaginal dryness. She does have hot flashes/night sweats. The patient has had an abnormal pap smear within the last 5 years. Her most recent pap smear was in 2010. She has been diagnosed with breast cancer. She does have a family history of breast cancer. Her last mammogram was . The patient does exercise. She exercises x days/week by . * ROS: A nnual Azure Principal Solution Specialist Exam ROS: Bowel habit changes d enies. B ladder symptoms d enies. V aginal discharge, unusual d enies. V aginal itch or odor d enies. a bnormal bleeding d enies. w eight or appetite changes d enies. C hest pains, SOB d enies. d epression d enies. B reast: Denies B reast lump. D enies N ipple discharge.? H ematology: Denies S wollen glands. S kin: Patient denies c hanging moles. P sychiatric: Denies A nxiety. * Medical History: * Azure Principal Solution Specialist History: * Hep B Vac 1 999. G ardasil: h as not had vaccine. C olonoscopy y es, 1999. M enarche 1 3. B irth Control: n one. H istory of STD's: n one. L MP and menses 1 . A bnormal Pap Smear: n o history of abnormal pap smears. M ammogram: n ot due per age. L ast Pap Smear: 2 011, neg. S exual activity n ot currently sexually active. G ravida/ Para 0 /0. * OB History: T otal pregnancies 0 . * Medications: T aking Terconazole 0.8 % Cream 1 applicatorful at bedtime Vaginal Once a day Objective: * Vitals: * Examination: G eneral Examination: GENERAL APPEARANCE: i n no acute distress, well developed, well nourished, instrument technician helper present in room. HEAD: n ormocephalic, atraumatic. NECK/THYROID: n usha supple, full range of motion, thyroid normal. LYMPH NODES: n o axillary or supraclavicular adenopathy.? SKIN: normal, good turgor, no rashes, no suspicious lesions. BREASTS: n ormal, no dimpling, no discharge, no drainage, no masses palpable bilaterally, nontender. ABDOMEN: soft, non-tender, non distended without masses or hepatosplenomegay. RECTAL: normal tone, no masses palpable. BACK: no costovertebral angle tenderness. FEMALE GENITOURINARY: V ulva without lesions or masses, vagina pink without abnormal discharge, lesions or masses, cervix appears normal and is not tender to palpation, uterus is normal size, mobile, nontender and anteverted, ovaries are not palpable. NEUROLOGIC: alert and oriented, gait normal. PSYCH: alert, oriented, cognitive function intact, cooperative with exam, good eye contact, mood/affect full range, speech clear. Assessment: * Assessment: 1. E ncounter for gynecological examination (general) (routine) without abnormal findings - Z01.419 (Primary) 2 . E ncounter for screening mammogram for malignant neoplasm of breast - Z12.31 3 . E ncounter for screening for infections with a predominantly sexual mode of transmission - Z11.3 Plan: * Treatment: 2. E ncounter for screening mammogram for malignant neoplasm of breast I maging: MM Digital Screening Mammogram 3D * Follow Up: 1 Year (Reason: Yearly Azure Principal Solution Specialist Exam) * Images: Billing Information: * Visit Code: * Procedure Codes: * Electronic signature of ANÍBAL HUDSON MD on 11/13/2024 at 06:43 AM EDT Sign off status: Pending * Provider: Kentrell HUDSON MD Date: Generated for Natasha rodriguez/Vanesa/eTransmitting on: 0 11/13/2024 06:43 AM EDT History and Physical Notes * HPI (History of Present Illness) Category Sub-Category Detail Notes Category Not es Constitutional Karina is a 43 yo G0 with LMP x/x/x 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 She is new again to this practice, having last received care here in 2019. She has been in state of health since her last exam. She has the following concerns. She has received the Covid-19 vaccine. Relationship status: for years. She is sexually active. Sexual partner(s): male. She does wish to have STI testing. Menses: Contraception: She does report vaginal dryness. She does have hot flashes/night sweats. The patient has had an abnormal pap smear within the last 5 years. Her most recent pap smear was in 2010. She has been diagnosed with breast cancer. She does have a family history of breast cancer. Her last mammogram was . The patient does exercise. She exercises x days/week by . Examination Category Sub-Category Detail Notes Category Not es General Examination GENERAL APPEARANCE: in no ac yrn distress, well developed, well nourished, instrument technician helper present in room HEAD: normocephalic, atrau matic NECK/THYROID: neck supple, full ra nge of motion, thyroid normal ABDOMEN: soft, non-tender, no n distended without masses or hepatosplenomegay NEUROLOGIC: alert and oriented, gait normal SKIN: normal, good turgor, no rashes, no suspicious lesions BACK: no costovertebral an gle tenderness BREASTS: normal, no dimpling, no discharge, no drainage, no masses palpable bilaterally, nontender LYMPH NODES: no axillary or supra clavicular adenopathy RECTAL: normal tone, no mass es palpable PSYCH: alert, oriented, cog nitive function intact, cooperative with exam, good eye contact, mood/affect full range, speech clear FEMALE GENITOURINARY: Vulva without lesi ons or masses, vagina pink without abnormal discharge, lesions or masses, cervix appears normal and is not tender to palpation, uterus is normal size, mobile, nontender and anteverted, ovaries are not palpable
[2024-11-13 06:11] VITALS: BP 130/67; PULSE 97; RESP 18; TEMP 36.8; O2SAT 98; BMI 29.8
--- OUTSIDE RECORDS SUMMARY | 2024-11-13 06:44 | XMS_ITS ---
Author Name [facility] Organization Unknown Care Team Organization Name Specialty Phone Email Start Date End Da te [facility] Ulises Natarajan [facility] 01/07/2022 10/19/19 24
--- OUTSIDE RECORDS SUMMARY | 2024-11-13 06:44 | XMS_ITS | Patient Health Record ---
Author Organization [employer] Address [address] [place] [id number] Care Team Providers Care Cnc Technician Name Role Phone Delgado MIRZA, Ulises Primary Care Provider Unavailab ANÍBAL Nogueira Unavailable [phone] Allergies No Known Allergies Reason For Referral No Information Medications Medication SIG (Take, Route, Fr equency, [...] ast year? No Points 0 Interpretation Negative Problems Problem Type SNOMED Code ICD Code Onset Dates Problem Status W/U Status Risk Notes Problem Abnormal uterine bleeding ([id number] [id number]) Abnormal uterine and vaginal bleeding, unspecified (N93.9) Active confirmed Encounters Encounter Location Date Provider Diagnosis [facility] [address] [id number] 12/31/2023 ANÍBAL HUDSON Encounter for gynecological examination [...] transmission (ICD-10 - Z11.3) Plan Of Treatment Pending Test Test Name Order Date Test, Urine 01/07/2019 Urinalysis 01/07/2019 FSH 01/07/2019 TSH WITH REFLEX TO FT4 01/07/2019 PROLACTIN WITH REFLEX TO MONOMERIC 01/07 ULTRASOUND: PELVIC W/TRANSVAGINAL 2023 MM Digital Screening Mammogram 3D 2023 Insurance Providers Payer Name Payer Address Payer Phone Subscriber Number Group Number Insured Name Patient Relationship to Insured Coverage Start Date Coverage End Date [employer] [address] [place] [phone] KARINA PATEL Self - patient is the insured Medical (General) History Surgical History Surgery Date(Month/Year)
--- NOTE | 2024-11-13 07:09 | ED.GENADULT ---
HPI - General Adult General Chief complaint: Eye Problems Stated complaint: having discomfort in right eye Time Seen by Provider: 11/13/24 07:09 History of Present Illness ED Provider: Padmini LANGFORD narrative: The patient is a 44-year-old woman with no significant past medical history. She does not wear contact lenses. She wears glasses. She says she has been working a lot over the last couple of weeks and last night she felt that she had some mild discomfort to the right eye. A co-worker had some similar symptoms. She also felt that she had some nasal sniffling and thought she might have some allergies. Ultimately she decided to come to the emergency room for evaluation of her eye but while waiting to be seen she has decided that her symptoms are really quite mild. She has no sensation of a foreign body in the eye. No pain in the eye. She does not feel that her vision is any different than usual. She does not think she has gotten anything in her eye or had any injury to the eye. No fever, sweats, chills. Related Data Home Medications ?Medication ?Instructions ?Recorded ?Confirmed No Known Home Meds 11/11/23 11/11/23 Allergies Allergy/AdvReac Type Severity Reaction Status Date / Time acetaminophen (From Percocet) Allergy Itching Verified 11/13/24 06:14 oxycodone (From Percocet) Allergy Itching Verified 11/13/24 06:14 Review of Systems Review of Systems: Yes all other systems are reviewed and are negative FOR[facility]LY [facility], [facility] Past Medical History Medical History Anemia Social History Social History Alcohol intake: current Alcohol intake frequency: does not drink Patient Tobacco Use Status: Never used Tobacco Advance Directives: No Physical Exam ED Vital Signs: Vital Signs - 24 hr 11/13/24 06:11 Temperature 98.2 F Pulse Rate 97 Respiratory Rate 18 Blood Pressure 130/67 Pulse Oximetry 98 Oxygen Delivery Method Room Air BMI result Body Mass Index 29.8 Const Other: The patient is a healthy looking 44-year-old. She looks younger than her age. She is awake, alert, pleasant, cooperative. She does not appear in any distress. HENMT Other: The face is symmetrical. ?Mucous membranes moist. Eyes Other: Pupils are round, equal, and reactive to light, conjunctivae are clear, extraocular movements are intact. There is no evident foreign body or injection or discharge. The eyes seem entirely normal and without pathology. Neck Neck: Yes full ROM Resp Effort & Inspection: normal respiratory effort Neuro Other: The patient is awake and alert with a normal mental status. She seems grossly neurologically intact. Medical Decision Making Medical Decision Making MDM Narrative: The patient is a 44-year-old woman who presents with what she describes as fairly mild symptoms of right eye irritation. There was no obvious pathology with inspection of the eye. She says she has no change in her vision. She has no foreign body sensation. She has no eye pain. I explained to the patient that I could take her eye exam further with slit-lamp exam and fluorescein staining and possibly other maneuvers. However the patient did not wish to have any other maneuvers done as she feels her symptoms are really quite mild and was just looking for some confirmation that she is not having any significant eye problem. Since my clinical suspicion for any significant process is extremely low we agreed to not do any additional evaluation. She will be discharged with recommendations to follow up with [facility] this week if she has ongoing symptoms. That is where she gets her eyeglasses. She should return if worse. Discharge Plan Discharge Clinical Impression: Irritation of right eye Patient Disposition: Home, Self-Care Additional Instructions: At the moment I do not think there is any high likelihood of a bad process in your right eye. This seems to be some minor irritation. If you have any ongoing symptoms during the week please try contacting [facility] to see if they can examine your eye. If your symptoms are significantly worse please return to the emergency department. Prescriptions: No Action No Known Home Meds Print Language: Yoruba
[2024-11-13 07:39] VITALS: BP 130/67; PULSE 97; RESP 18; TEMP 36.8; O2SAT 98
== END 2024-11-13 07:40 | disposition home or self-care (01) ==
PROVIDERS: Emergency Provider Emergency Medicine
DX: H57.11 Ocular pain, right eye (principal)
CPT/HCPCS: 99282